=== PATIENT | male | born 1990 | race Caucasian/White ===

== ENCOUNTER 2022-06-03 07:55 | Emergency (ER) | payer MEDICAID ==
[~2022-06-03] VITALS: Ht 167.6 cm; Wt 68.0 kg
[2022-06-03] MEDS ORDERED: TETRACAINE HCL 0.5% OPHT DROP 2 ML BOTTLE ONE (08:17)
[2022-06-03] MEDS ORDERED: FLUORESCEIN SODIUM 1 MG STRIP ONE (08:18)
[2022-06-03] MEDS ORDERED: FLUORESCEIN SODIUM 1 MG STRIP OP ONE (08:30)
[2022-06-03] MEDS ORDERED: TETRACAINE HCL 0.5% OPHT DROP 2 ML BOTTLE OP ONE (08:30)
[2022-06-03] MEDS ORDERED: POLY10DR3 RIGHTEYE (08:46)
--- NOTE | 2022-06-03 09:05 | NUR ---
Gave pt RX and d/c instructions, pt verbalized understanding.
== END 2022-06-03 09:15 | disposition home or self-care (01) ==
LOC: ER 07:55
DX: T15.01XA Foreign body in cornea, right eye, initial encounter (principal); S00.251A Superficial foreign body of right eyelid and periocular area, initial encounter; X58.XXXA Exposure to other specified factors, initial encounter; Y93.89 Activity, other specified; Y92.89 Other specified places as the place of occurrence of the external cause
CPT/HCPCS: A4663